=== PATIENT | male | born 2000 | race Hispanic/Latino ===

== ENCOUNTER 2021-03-14 09:32 | Emergency (ER) | payer BC ==
--- OUTSIDE RECORDS SUMMARY | 2021-03-14 09:35 | XMS REPORT | Continuity of Care Document ---
:2000 Author Organization [facility] t Address [address] [place] [address] Care Team Providers Name Role Phone Asked, Pcp Primary Care Physician Unavailable [email or web address] Attending Clinician Unavailable [id number] Attending Clinician Unavailable TESTING, COVID Attending Clinician Unavailable Vu [place] Attending Clinician Shirley Russo MD Attending Clinician Payers Payer Name Policy Type Policy Number Effective Date Expiration Date Norma garcia BCBS (Medicaid) P [id number] of [place] BCBS 2 [id number] 2020 00:00:00 Problems This patient has no known problems. Allergies, Adverse Reactions, Alerts This patient has no known allergies or adverse reactions. Social History Social Habit Start Date Stop Date Quantity Comments Source History [facility] [place]ka [place] Alcohol Binge History [facility] Shaneka [place] Alcohol Comment Exposure to Not sure Shaneka watters SARS-CoV-2 (event) History [facility] Shaneka [place]ton Alcohol Std Drinks Tobacco use and 2021-01-01 2021-01-01 Smokeless tobacco Ke riky Rubi exposure 00:00:00 00:00:00 non-user Alcohol intake 2021-01-01 2021-01-01 Lifetime Shaneka maldonado 00:00:00 00:00:00 non-drinker (finding) History SDOH 2021-01-01 2021-01-01 1 Shaneka [place]ton Alcohol Frequency 00:00:00 00:00:00 Sex Assigned At [birth year] [facility] 00:[facility]00 [facility] Smoking Status Start Date Stop Date Source Never smoked tobacco Shaneka Seyb old Former smoker 2020-12-25 00:00:00 2020-12-25 00:00:00 [facility] Medications Ordered Filled Start Stop Current Ordering Indication Dosage Frequency Signature Comments Components Source Medication Medication Date Date Medication? Clinician (SIG) Name Name marlinPREDN 2020-03 Yes [id number] 1{lyric} Take 1 lyric Shaneka ISolone 4 0-11 by mouth Seybol d MG oral 00:00: See Admin Tablet 00 Instructio Therapy ns Use as Pack directed Azithromyci 2020-03- Yes [id number] Take 2 Shaneka n 250 MG 0-11 10-17 tablets by Seyb old oral Tablet 00:00: 04:59 mouth on 00 :00 day 1 then 1 tablet by mouth daily for 4 days thereafter . codeine-gu[place] 2020-03- [place] [id number] 5mL Q.25D Take 5 mL Methodi ifenesin 0-04 10-[address] (GUAIFENESI 00:00: 04:59 (four) Hos mary N AC) 00 :00 times a l 10-100 mg/5 day as mL liquid needed for cough for up to 5 days .acute pain. Vital Signs Vital Name Observation Time Observation Value Comments Source Body height 2021-01-01 15:48:00 170.2 cm Shaneka avilabofelix Body weight 2021-01-01 15:48:00 90.719 kg Shaneka Green bo BMI 2021-01-01 15:48:00 31.32 kg/m2 Shaneka Green [facility] Body mass index 2021-01-01 15:48:00 96.60 % Manuelito Rubi (BMI) [Percentile] Per age and sex Body height 2020-12-26 02:32:00 170.2 cm [facility] Body weight 2020-12-26 02:32:00 90.719 kg [facility] BMI 2020-12-26 02:32:00 31.32 kg/m2 [facility] Systolic blood 2020-12-26 02:26:39 145 mm[Hg] Method [facility] pressure Diastolic blood 2020-12-26 02:26:39 86 mm[Hg] [facility] pressure Heart rate 2020-12-26 02:26:39 93 /min [facility] Body temperature 2020-12-26 02:26:39 36.78 Dominique [facility] Respiratory rate 2020-12-26 02:26:39 19 /min [facility] Oxygen saturation in 2020-12-26 02:26:39 98 /min [facility] Arterial blood by Pulse oximetry Procedures Procedure Date / Time Performed Performing Clinician Sourc e XR CHEST 2 VW 2020-12-26 03:03:39 [facility] RESPIRATORY PATHOGEN 2020-12-26 02:40:00 [facility] PANEL WITH COVID-19 RT-PCR Plan of Care Planned Activity Planned Date Details Comments Source Future Scheduled Test COVID-19 VACCINE (1) [facility] [code = COVID-19 VACCINE (1)] Future Scheduled Test Hepatitis C screening [facility] (procedure) [code = 368196516] Future Scheduled Test INFLUENZA VACCINE M [facility] [code = INFLUENZA VACCINE] Encounters Start End Encounter Admission Attending Care Care Encounter Source Date/Time Date/Time Type Type Clinicians Facility Department ID 2021-01-07 Outpatient [email or web address] [facility] [id number] 15:42:33 [id number] [facility] 2021-01-02 2021-01-02 Outpatient [id number] SHANEKA VILLASENOR [id number] Shaneka 09:05:00 09:05:00 Seybol d 2021-01-02 2021-01-02 Outpatient TESTING, SHANEKA VILLASENOR [id number] Shaneka 08:30:00 08:30:00 [facility] Seybol d 2021-01-01 2021-01-01 [facility] Inessa Chen [id number] Shaneka 10:45:58 11:15:58 ne [id number] Se godfrey [id number] 2020-12-25 2020-12-25 Emergency Dese, 1.2.840.1 [id number] Method[facility] 21:21:00 22:40:[id number] Shirley 3.430.2.7 Hosp a[facility]a .[id number] l .8 2020-12-25 2020-12-25 Travel 1.2.840.1 [id number] Methodi 00:00:00 00:00:[id number] 3.430.2.7 0.2.7.3.698 Ho spita .[id number] 084.8 l .8 Results Test Description Test Time Test Comments Results Result [facility] e Comments XR Chest 2 Vw EXAMINATION: XR CHEST [facility] 5 2 VW CLINICAL HISTORY: Ho spital 03:20:47 cough x 3 wks COMPARISON: None IMPRESSION: Prominent hilar and perihilar interstitial lung markings are seen bilaterally in a pattern consistent with reactive airways disease versus viral pneumonia. No consolidations, effusions, or pneumothorax. Cardiomediastinal silhouette is within normal limits. No acute osseous abnormalities are visualized. [id number] Interface, Radiology Results Incoming - 12/25/2020 10:23 PM CDT EXAMINATION: XR CHEST 2 VWCLINICAL HISTORY: cough x 3 wksCOMPARISON: NoneIMPRESSION:Promine nt hilar and perihilar interstitial lung markings are seen bilaterally in a pattern consistent with reactive airways disease versus viral pneumonia. No consolidations, effusions, or pneumothorax.Cardiomed iastinal silhouette is within normal limits.No acute osseous abnormalities are visualized.[id number]
--- NOTE | 2021-03-14 10:08 | ER ---
Nurse's Notes [facility] Name: Geraldo Breen Age: 20 yrs Sex: Male : 2000 Arrival Date: 03/14/2021 Time: 09:35 Bed 13 Private MD: Diagnosis: Muscle spasm Presentation: 03/14 09:42 Chief complaint: Patient states: i have been having left sided mid back pain that goes tw2 to the front of my stomach for a week. it also hurts to bend my neck forward. pt denies n/v/d. denies burning with urination or blood in urine. Coronavirus screen: At this time, the client does not indicate any symptoms associated with coronavirus-19. Ebola Screen: Patient denies travel to an Ebola-affected area in the 21 days before illness onset. Initial Sepsis Screen: Does the patient meet any 2 criteria? No. Patient's initial sepsis screen is negative. Does the patient have a suspected source of infection? No. Patient's initial sepsis screen is negative. Risk Assessment: Do you want to hurt yourself or someone else? Patient reports no desire to harm self or others. Onset of symptoms was March 14, 2021. 09:42 Method Of Arrival: Ambulatory tw2 09:42 Acuity: LAN 4 tw2 Triage Assessment: 09:43 General: Appears in no apparent distress. uncomfortable, well groomed, Behavior is tw2 calm, cooperative, appropriate for age. Pain: Complains of pain in back and neck Pain radiates to chest. Neuro: Level of Consciousness is awake, alert, obeys commands, Oriented to person, place, time, situation. Cardiovascular: Patient's skin is warm and dry. Respiratory: Airway is patent Respiratory effort is even, unlabored, Respiratory pattern is regular, symmetrical. Musculoskeletal: Range of motion: intact in all extremities. 09:49 GI: Patient currently denies diarrhea, nausea, vomiting. : Denies burning with tw2 urination, urinary frequency. Historical: - Allergies: 09:43 No Known Allergies; tw2 - Home Meds: 09:43 None [Active]; tw2 - PMHx: 09:43 None; tw2 - PSHx: 09:43 None; tw2 - Immunization history:: Client reports having NOT received the Covid vaccine. - Social history:: Smoking status: Patient denies any tobacco usage or history of. Screenin:45 Abuse screen: Denies threats or abuse. Nutritional screening: No deficits noted. tw2 Tuberculosis screening: No symptoms or risk factors identified. Fall Risk None identified. Assessment: 09:44 Reassessment: see triage assessment. tw2 10:03 Reassessment: provider at bedside at this time. tw2 Vital Signs: 09:42 BP 108 / 60; Pulse 67; Resp 17; Temp 97.3(TE); Pulse Ox 100% on R/A; Weight 93.8 kg tw2 (M); Height 5 ft. 7 in. (170.18 cm); Pain 9/10; 09:42 Body Mass Index 32.39 (93.80 kg, 170.18 cm) tw2 ED Course: 09:35 Patient arrived in ED. ds1 09:36 Bed in low position. Call light in reach. Pulse ox on. NIBP on. tw2 09:37 Adama Fontaine PA is PHCP. jr8 09:37 Suresh Riley MD is Attending Physician. jr8 09:42 Peggy De Luna, RN is Primary Nurse. tw2 09:43 Triage completed. tw2 09:44 Arm band placed on. tw2 10:18 No provider procedures requiring assistance completed. Patient did not have IV access jh during this emergency room visit. Administered Medications: No medications were administered Outcome: 10:07 Discharge ordered by . jr8 10:18 Discharged to home ambulatory. jh5 10:18 Condition: good 10:18 Discharge instructions given to patient, Instructed on discharge instructions, medication usage, safety practices, Demonstrated understanding of instructions, follow-up care, medications, Prescriptions given X 2. 10:19 Patient left the ED. 5 Signatures: Carleen Leigh ds1 Adama Fontaine PA PA jr8 Peggy De Luna RN RN tw2 Cira Hodges RN RN 5 Corrections: (The following items were deleted from the chart) 09:49 09:42 Chief complaint: Patient states: i have been having left sided mid back pain that tw2 goes to the front of my stomach for a week. it also hurts to bend my neck forward. tw2 09:49 09:43 Respiratory: Airway is patent Respiratory effort is even, unlabored, Respiratory tw2 pattern is regular, symmetrical, tw2
--- NOTE | 2021-03-14 10:08 | EDPHYS ---
Physician Documentation [facility] Name: Geraldo Breen Age: 20 yrs Sex: Male : 2000 Arrival Date: 03/14/2021 Time: 09:35 Bed 13 Private MD: ED Physician Suresh Riley HPI: 03/14 10:08 This 20 yrs old Male presents to ER via Ambulatory with complaints of Rib jr8 Pain, Back Pain. 10:08 This is a 20-year-old male that presented to the emergency room with complaints of jr8 left-sided back pain that radiates through his chest. Stated that it hurts with any sort of flexion or extension of his back along with turning to the left side. Stated that it came on suddenly while at rest. Denies any trauma. Denies any other symptoms at this time.. Historical: - Allergies: 09:43 No Known Allergies; tw2 - Home Meds: 09:43 None [Active]; tw2 - PMHx: :43 None; tw2 - PSHx: 09:43 None; tw2 - Immunization history:: Client reports having NOT received the Covid vaccine. - Social history:: Smoking status: Patient denies any tobacco usage or history of. ROS: 10:08 Eyes: Negative for injury, pain, redness, and discharge, ENT: Negative for injury, jr8 pain, and discharge, Neck: Negative for injury, pain, and swelling, Respiratory: Negative for shortness of breath, cough, wheezing, and pleuritic chest pain, Abdomen/GI: Negative for abdominal pain, nausea, vomiting, diarrhea, and constipation, MS/Extremity: Negative for injury and deformity, Skin: Negative for injury, rash, and discoloration, Neuro: Negative for headache, weakness, numbness, tingling, and seizure. 10:08 Cardiovascular: Positive for chest pain, with movement. 10:08 Back: Positive for pain at rest, pain with movement, radiated pain. Exam: 10:08 Constitutional: This is a well developed, well nourished patient who is awake, alert, jr8 and in no acute distress. Neck: Trachea midline, no thyromegaly or masses palpated, and no cervical lymphadenopathy. Supple, full range of motion without nuchal rigidity, or vertebral point tenderness. No Meningismus. Cardiovascular: Regular rate and rhythm with a normal S1 and S2. No gallops, murmurs, or rubs. Normal PMI, no JVD. No pulse deficits. Respiratory: Lungs have equal breath sounds bilaterally, clear to auscultation and percussion. No rales, rhonchi or wheezes noted. No increased work of breathing, no retractions or nasal flaring. Abdomen/GI: Soft, non-tender, with normal bowel sounds. No distension or tympany. No guarding or rebound. No evidence of tenderness throughout. Skin: Warm, dry with normal turgor. Normal color with no rashes, no lesions, and no evidence of cellulitis. MS/ Extremity: Pulses equal, no cyanosis. Neurovascular intact. Full, normal range of motion. Neuro: Awake and alert, GCS 15, oriented to person, place, time, and situation. Cranial nerves II-XII grossly intact. Motor strength 5/5 in all extremities. Sensory grossly intact. Cerebellar exam normal. Normal gait. 10:08 Chest/axilla: Inspection: normal, Palpation: tenderness, that is mild, of the left lateral anterior chest and left lateral posterior chest. 10:08 Back: pain, that is moderate, of the left scapular area, left subscapular area and left mid back, ROM is painful, normal spinal alignment noted, CVA tenderness, is absent. Vital Signs: 09:42 BP 108 / 60; Pulse 67; Resp 17; Temp 97.3(TE); Pulse Ox 100% on R/A; Weight 93.8 kg tw2 (M); Height 5 ft. 7 in. (170.18 cm); Pain 9/10; 09:42 Body Mass Index 32.39 (93.80 kg, 170.18 cm) tw2 MDM: 09:37 Patient medically screened. jr8 10:06 Data reviewed: vital signs, nurses notes, and as a result, I will discharge patient. jr8 Data interpreted: Pulse oximetry: on room air is 100 %. Interpretation: normal. Counseling: I had a detailed discussion with the patient and/or guardian regarding: the historical points, exam findings, and any diagnostic results supporting the discharge/admit diagnosis, the need for outpatient follow up, a family practitioner, to return to the emergency department if symptoms worsen or persist or if there are any questions or concerns that arise at home. ED course: With patient that his condition seems musculoskeletal at this point as he has majority of his pain with motion and manipulation. Lung sounds were clear and there is no bony tenderness. No external signs of trauma. Vital signs stable with no decrease in oxygen saturation. We will trial him on muscle relaxant and NSAID. If it is not getting better or he has other symptoms arise to come back for further evaluation which patient is good with.. Administered Medications: No medications were administered Disposition: 10:36 Co-signature as Attending Physician, Suresh Riley MD I agree with the assessment and kdr plan of care. Disposition Summary: 03/14/21 10:07 Discharge Ordered Location: Home jr8 Problem: new jr8 Symptoms: have improved jr8 Condition: Stable jr8 Diagnosis - Muscle spasm jr8 Followup: jr8 - With: Private Physician - When: 1 week - Reason: Recheck today's complaints, Continuance of care, Re-evaluation by your physician Discharge Instructions: - Muscle Cramps and Spasms jr8 - Discharge Summary Sheet tw2 Forms: - Medication Reconciliation Form jr8 - Thank You Letter jr8 - Work release form tw2 - Antibiotic Education jr8 - Prescription Opioid Use jr8 Prescriptions: - Ibuprofen 800 mg Oral Tablet - take 1 tablet by ORAL route every 8 hours As needed take with food; 30 tablet; jr8 Refills: 0, Product Selection Permitted - Cyclobenzaprine 10 mg Oral Tablet - take 1 tablet by ORAL route every 8 hours As needed; 30 tablet; Refills: 0, jr8 Product Selection Permitted Signatures: Suresh Riley MD MD kdr Roszak, Josh, PA PA jr8 Peggy De Luna RN RN tw2
[2021-03-14 10:28] VITALS: BP 108/60; TEMP 97.3; O2SAT 100
== END 2021-03-14 10:19 | disposition home or self-care (01) ==
LOC: ER 09:32
DX: M62.838 Other muscle spasm (principal)
CPT/HCPCS: 99283